=== PATIENT | female | born 1990 | race Hispanic/Latino ===

== ENCOUNTER 2023-04-20 20:43 | Emergency (ER) | payer MEDICAID, SELFPAY ==
[2023-04-20] VITALS (11 sets, daily range): BP systolic 128–149; BP diastolic 64–95; PULSE 60–90; RESP 16–28; TEMP 36.7; O2SAT 98–100
[2023-04-20 21:08] LABS: Glucose Point of Care 165 mg/dl (65-105)
--- NOTE | 2023-04-20 22:41 | ED.DIZZY ---
HPI - Dizziness General Chief Complaint: Dizziness Stated Complaint: elevated BS 155 elevated BP Time Seen by Provider: 04/20/23 22:27 History of Present Illness HPI Narrative: 32-year-old female with reported history of a mini-stroke on November 02, 2022, hypertension, hyperlipidemia and diabetes reports for evaluation for anxiety. Patient states earlier this evening, she was eating rice and fried pork when she began to feel anxious. States she then felt dizzy and her entire body became numb and tingly. States she checked her blood sugar which was 190 in her blood pressure was 160/100 which made her more nervous. She took her nightly medications then came to the ED for evaluation. She is completely asymptomatic now other than still feeling mildly anxious. Her dizziness, numbness and tingling has resolved. She states this is how her anxiety attacks normally present but she wanted to make sure she was not having another stroke. She denies head injury or trauma, vision changes, focal numbness or weakness, chest pain or shortness of breath, loss of consciousness, fever, abdominal pain, urinary complaints, n/v/d. patient states she has been trialed on Zoloft and Lamictal for her anxiety without improvement. She is currently prescribed hydroxyzine p.r.n. which she does not take because she does not like the way it makes her feel. Related Data Allergies Allergy/AdvReac Type Severity Reaction Status Date / Time No Known Allergies Allergy Verified 04/20/23 20:44 Review of Systems Review of Systems: CONSTITUTIONAL: Denies fever, chills, or sweats. EYES: Denies visual changes, redness, or discharge. ENT: Denies rhinorrhea, congestion, sore throat, or otalgia. CARDIOVASCULAR: Denies chest pain, palpitations, or edema. RESPIRATORY: Denies cough or dyspnea. GASTROINTESTINAL: Denies abdominal pain, nausea, vomiting, or diarrhea. GENITOURINARY: Denies dysuria or hematuria. SKIN: Denies rash or itching. MUSCULOSKELETAL: Denies back pain, joint pain, or myalgia. NEUROLOGIC: see HPI PSYCHIATRIC: see HPI Exam Narrative: GENERAL: Well-appearing, well-nourished, and in no acute distress. HEAD: Normocephalic, atraumatic. EYES: PERRLA and EOMI. ENT: Nares clear, no rhinorrhea or epistaxis. Mucous membranes moist. NECK: Supple. CHEST: Clear to auscultation. No respiratory distress. HEART: Regular rate and rhythm. No murmur heard. Normal peripheral pulses. ABDOMEN: Soft, nontender, nondistended, normal active bowel sounds. EXTREMITIES: Normal range of motion. No edema. SKIN: Warm, dry, no rash. NEURO: No focal deficits. Alert and oriented x3. Cranial nerves 2-12 intact. Strength 5/5 in BUE and BLE. Sensation intact throughout. Normal [id number]. No pronator drift. Course Vital Signs Vital signs: Vital Signs Temperature 98.0 F 04/20/23 20:57 Pulse Rate 90 04/20/23 20:57 Respiratory Rate 18 04/20/23 20:57 Blood Pressure 145/87 H 04/20/23 20:57 Pulse Oximetry 99 04/20/23 20:57 Oxygen Delivery Room Air 04/20/23 20:57 Temperature 98.0 F 04/20/23 20:57 Pulse Rate 74 04/20/23 22:21 Respiratory Rate 22 H 04/20/23 22:21 Blood Pressure 138/89 04/20/23 22:21 Pulse Oximetry 100 04/20/23 22:21 Oxygen Delivery Room Air 04/20/23 20:57 MDM - Dizziness MDM Narrative Medical decision making narrative: 32-year-old female With a reported history of a CVA in November, hypertension, hyperlipidemia type 2 diabetes reports for evaluation after having an anxiety attack earlier today. See HPI for further history. Vitals are stable and she is well appearing on exam. She is neurovascularly intact without focal deficits. Sx have resolved at time of my evaluation other than mild anxiety. Bedside glucose is 165. Patient's symptoms seem very consistent with anxiety and are not consistent with CVA. I did offer to obtain basic labs, however she declined and states she would just like to go home. I offered
== END 2023-04-20 23:20 | disposition home or self-care (01) ==
LOC: ANHED 23:03
PROVIDERS: Emergency Provider Physician Assistant
DX: F41.9 Anxiety disorder, unspecified (principal); I10 Essential (primary) hypertension; E78.5 Hyperlipidemia, unspecified; E11.9 Type 2 diabetes mellitus without complications; Z86.73 Personal history of transient ischemic attack (TIA), and cerebral infarction without residual deficits
CPT/HCPCS: 82948; 99282